=== PATIENT | female | born 1985 ===

== ENCOUNTER 2017-06-05 09:40 | Observation (INO) | payer MEDICAID | END 2017-06-05 10:45 | disposition home or self-care (01) | DRG 566 | LOC: LDRP 09:40 | PROVIDERS: ADMIT Specialist; ATTEND Specialist | DX: O62.9 Abnormality of forces of labor, unspecified (principal); O26.893 Other specified pregnancy related conditions, third trimester; J00 Acute nasopharyngitis [common cold]; R10.30 Lower abdominal pain, unspecified; M54.9 Dorsalgia, unspecified; Z3A.32 32 weeks gestation of pregnancy | CPT/HCPCS: 59025; 81002; G0378 ==